=== PATIENT | female | born 1935 | race Caucasian/White ===

== ENCOUNTER 2017-06-04 08:20 | Inpatient (IN) | payer MEDICARE, OTHER ==
[2017-06-04] VITALS (14 sets, daily range): BP systolic 92–132; BP diastolic 50–76; PULSE 60–80; RESP 15–24; O2SAT 95–100
[~2017-06-04] VITALS: Ht 160 cm; Wt 54.0 kg
[2017-06-04] MEDS: Lactated Ringer's 1,000 ML IV SCH ×3 (05:00→11:24)
[~2017-06-04 08:20] MED LIST: ACET1TAB12 PO; ACET325T51 PO; ALEN70TA2 PO; ASPI325T32 PO; ATRV10T PO; CARV6.252 PO; CeFAZolin Inj 2 GM in IV Premix 1 EACH IV ONE; Dexamethasone 4 mg/mL Inj IVPUSH PRN; EPHEDrine Sulfate 50 mg/mL Inj IVPUSH PRN; FLUO10CA20 PO; FLUT16SP NS; HYDROmorphone 1 mg/mL Inj IVPUSH PRN; LEVO100T97 PO; LISI2.5T PO; Labetalol 5 mg/mL 4 mL Inj IV PRN; Lactated Ringer's 1,000 ML IV SCH; Lactated Ringer's 500 ML IV PRN; MetoCLOpramide 5 mg/mL 2 mL Inj IVPUSH PRN; Ondansetron 2 mg/mL 2 mL Inj IVPUSH PRN; Phenylephrine 10,000 mCg/mL Inj IVPUSH PRN; Vancomycin Inj 1,000 MG in IV Premix 1 EACH IV ONE; fentaNYL-PF 50 mCg/mL 2 mL Inj IVPUSH PRN; hydrALAZINE 20 mg/mL Inj IVPUSH PRN
[2017-06-04] MEDS ORDERED: CeFAZolin 2 Gm/50 mL D5W Duplex Bag IV ONE (08:41)
[2017-06-04] MEDS ORDERED: vit c PO (08:46)
[2017-06-04] MEDS ORDERED: MULT-1018 PO (08:46)
[2017-06-04] MEDS ORDERED: Tranexamic Acid 100 mg/mL 10 mL Inj ONE (11:01)
[2017-06-04] MEDS ORDERED: Bupivacaine Liposome 1.3% 20 mL Inj ONE (11:03)
[2017-06-04] MEDS ORDERED: 0.9% Sodium Chloride 10 mL Inj INFILTRATE ONE (11:32)
[2017-06-04] MEDS ORDERED: Bupivacaine-MPF 0.25%/EPI 30 mL Inj INFILTRATE ONE (11:32)
[2017-06-04] MEDS ORDERED: Bupivacaine Liposome 1.3% 20 mL Inj INFILTRATE ONE (11:32)
--- NOTE | 2017-06-04 12:16 | PCM.HPANE ---
Patient Data Date of Service: Jun 04, 2017 Surgeon Admitting Provider: Attending Provider:John Corral DO Primary Care Physician:Matilde Catherine DO Other Provider:Izabela Villegas Anesthesia Reason for Visit Left Vascular Necrosis Ht/WT & BMI Height (Feet): 5 Height (Inches): 2.00 Weight (Kilograms): 54.3 Body Mass Index 22.00 Allergies Coded Allergies: Penicillins (Verified Allergy, Mild, rash, 05/28/17) Sulfa (Sulfonamide Antibiotics) (Verified Allergy, Unknown, "felt awful", 05/28/17) levofloxacin (Verified Allergy, Unknown, "cannot recall reaction", 05/28/17 ) meperidine (Verified Allergy, Unknown, rash, 05/28/17) rosuvastatin (Verified Allergy, Unknown, muscle aches, 05/28/17) Past Anesthesia History Anesthesia History: Denies:: Abnormal Airway, Anesthesia Reactions, Difficult Intubation, Fam Anesthesia Reaction, Fam Malignant Hypertherm Diabetes History Hx Diabetes?: No MRSA MRSA: No Medications Blood Thinner: Aspirin Hypertension Medication: Yes Home Meds Incl Beta Rashmi: Yes Date Beta Rashmi Taken: Jun 04, 2017 Time Beta Rashmi Taken: 0700 Reported Medications [vit c] No Conflict Check Po Daily 06/04/17 Multivitamin (Multi Vitamin Daily)1 Each Tablet1 Each PO DAILY 30 Days Ref 0 06/04/17 Acetaminophen/Codeine 300-30mg (Tylenol/Codeine #3)1 Each Tablet1 Tablet PO Q6H PRN Pain Ref 0 05/28/17 Acetaminophen 325 Mg [id number] Mg PO Q4H PRN For Pain Ref 0 05/28/17 Levothyroxine (Synthroid)100 Mcg [id number] Mcg PO DAILY Ref 0 05/28/17 Lisinopril 2.5 Mg Tablet2.5 Mg PO DAILY 30 Days Ref 0 05/28/17 Alendronate Sodium (Fosamax)70 Mg Khcqyr43 Mg PO WEEKLY 30 Days Ref 0 05/28/17 Fluticasone Propionate (Fluticasone Propionate Nasal)16 Gm Irene.susp1-2 Irene NS BID #16 GM Ref 0 05/28/17 Carvedilol 6.25 Mg Tablet6.25 Mg PO BID Ref 0 05/28/17 Aspirin 325 Mg Tlunuc616 Mg PO DAILY #1 BOTTLE 05/28/17 Discontinued Reported Medications Fluoxetine 10 Mg Ycrrnob03 Mg PO DAILY Ref 0 05/28/17 Atorvastatin (Lipitor)10 Mg Tab10 Mg PO DAILY Ref 0 05/28/17 History History of ENT Problems?: Yes HEENT History: Positive for:: Cataracts (bilateral) Sinus Problem (perfume allergies, hx of sinus infections) Denies:: Abnormal Airway Difficult Intubation Dysphagia Glaucoma Hearing Problem TMJ Denture Type: None Teeth Condition: Within Normal Limits Hx of Heart Problems?: Yes Cardiovascular History: Positive for:: AICD Cardiac Surgery (ICD (for bradycardia)) Coronary Artery Disease Hypertension Denies:: Atrial Fibrillation Edema Heart Murmur Irregular Heartbeat Pacemaker Peripheral Vascular Rheumatic Fever Valvular Heart Disease (stress test 2017- ef 72%) Hx of Respiratory Problem?: No Respiratory History: Denies:: Asthma COPD Emphysema Oxygen Administration Pneumonia Pulmonary Embolism Tuberculosis Use of C-PAP Machine (did not tolerate CPAP) Use of Inhalers / NEBS Hx Neurologic Problems?: Yes Neurological History: Positive for:: CVA (2016- affected eyesight (double vision)- resolved ) Denies:: Headaches Multiple Sclerosis Parkinson's Disease Seizures TIA Hx of GI Problems?: No Hx of Problems?: No Genitourinary History: Denies:: Kidney Stones Urinary Tract Infection Female Hx: Denies:: Currently (hysterectomy) Problems with Breasts? Skin History: Denies:: History Skin Disorders? Pressure Ulcers Hx Musculoskeletal Problems?: Yes Musculoskeletal History: Positive for:: Degenerative Joint Musculoskeletal Trauma (left hip avascular necrosis current admission problem) Osteoarthritis (osteoporosis) Denies:: Back Injury Fibromyalgia Joint Replacement Systemic Lupus Hx of Psycho/Social Problems?: No Psycho Social History: Denies:: Anxiety Hx Depression Hx Surgeries?: Yes (hysterectomy, pacemaker, IM nail ) Hx Any Other Health Problems?: Yes Other History: Positive for:: Thyroid Disease Denies:: Cancer Hx Diabetes: No Hx Alcohol Use: YesAlcoholic Drinks Per Day: rare - once monthlyHx Substance Use: NoHave You Smoked inLast 12 mo: No Stop/Bang Treated for Sleep Apnea?: No Do You Have a CPAP Machine?: No S-Snoring: Do You Snore Loudly: No T-Tired: feel tired, fatigued: Yes O-Obsered: Observed not breath: No P-Blood Pressure: treated: Yes B- Body Mass Index > 35 kg/m2: No A- Age over 50: Yes N- Neck Large Circumference: No G- Gender Male: No RENA Total Score: 3 RENA Risk Assessment: Low Risk, <3 Yes Risk Assessment Category Category 1A: Patient has history of documented sleep apnea, and HAS NOT received any narcotic, sedative or anesthesia administration during this stay. Category 1B: Patient has history of documented sleep apnea, and HAS received any narcotic , sedative or anesthesia administration during this stay Category 2: Patient has SUSPECTED Obstructive Sleep Apnea, and HAS received any narcotic , sedative or anesthesia administration during this stay. Category 3: Patient has SUSPECTED Obstructive Sleep Apnea and HAS NOT received narcotic, sedative or anesthesia administration during this stay. Category 4: Outpatient in Procedural Areas with known sleep apnea or who screen positive for High Risk via the STOP/BANG questionnaire. Exam Exam Vital Signs Vital Signs Date Time Temp Pulse Resp B/P Pulse Ox O2 Delivery O2 Flow Rate FiO2 06/04/17 09:00 36.3 66 18 119/72 100 Room Air General Appearance: Alert, Oriented X3, Cooperative, No Acute Distress HEENT/AIRWAY: MP 2 Lungs: Clear to Auscultation, Normal Air Movement Heart: Exam Unremarkable, Regular Rate/Rhythm, No Murmurs/Rubs/Gallops Meds/Labs/Diagnostics Admission Meds Current Medications Lactated Ringer's 1,000 ml @ 120 mls/hr Q8H20M IV Last administered on 11:24; Start 06/04/17 at 05:00; Stop 06/04/17 at 13:19 Cefazolin Sodium/ Dextrose 2 gm/ Premix 50 ml @ 100 mls/hr PREOP ONCE IV Last administered on 06/04/17 11:33; Start 06/04/17 at 06:00; Stop 06/04/17 at 06:29; Status DC Vancomycin/0.9 % Sod Chloride/ Premix (Vancomycin Inj/ IV Premix) 200 ml @ 200 mls/hr PREOP ONCE IV Last administered on 06/04/17 09:10; Start 06/04/17 at 06:00; Stop 06/04/17 at 06:59; Status DC Plan Impression Patient chart reviewed, patient interviewed and anesthestic plan with risks, benefits, and alternatives discussed, and informed consent obtained. NPO per Anesth. Guidelines: Yes ASA Physical Status: ASA3 Severe Disease Anesthetic Plan: GA, SAB Bene/Risks/Altern/Consents: Yes HP Complete Prior to Induction: Yes Scott Lopez MD Jun 04, 2017 12:16
[2017-06-04] MEDS ORDERED: Lactated Ringer's 1,000 ML IV ONE (12:56)
[2017-06-04] MEDS ORDERED: HYDROmorphone 2 mg/mL Inj IVPUSH PRN (14:10)
[2017-06-04] MEDS ORDERED: Ondansetron 2 mg/mL 2 mL Inj IVPUSH PRN (14:10)
[2017-06-04] MEDS ORDERED: Acetaminophen IV 1,000 MG in IV Premix 1 EACH IV PRN (14:10)
[2017-06-04] MEDS ORDERED: diphenhydrAMINE 25 mg Capsule PO PRN (14:10)
[2017-06-04] MEDS ORDERED: Polyethylene Glycol (PEG) 17 Gm Powder PO PRN (14:10)
[2017-06-04] MEDS ORDERED: Sodium Biphos-Phos 133 mL Enema RECTAL PRN (14:10)
[2017-06-04] MEDS ORDERED: Magnesium Hydroxide 10 mL Oral Concentration PO PRN (14:10)
[2017-06-04 14:46] LABS: APPEARANCE,URINE HAZY (CLEAR,HAZY); COLOR,URINE STRAW (YELLOW); OCCULT BLOOD,URINE NEGATIVE (NEGATIVE); PH,URINE 7.5 (5.0-8.0); UROBILINOGEN,URINE NORMAL (NORMAL)
--- NOTE | 2017-06-04 14:59 | OP ---
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 PROCEDURE: Left hip conversion of previous hip nail to total hip arthroplasty. INDICATIONS: The patient is an 81-year-old female who fell and had an intertrochanteric hip fracture which was treated with a long cephalomedullary nail. She initially did well, however, then developed increasing pain and it was found that her lag screw had cut out through the femoral head causing damage to the acetabulum with posttraumatic arthritis. We discussed treatment options for this and I recommended a conversion to total hip replacement. We discussed the risks, benefits, and possible complications of surgery. All questions were answered. She would like to proceed. She had to have a cardiac workup and clearance prior to surgery which was undertaken and she was deemed ready for surgery today. We discussed the risks, benefits, and possible complications of surgery. All questions were answered. She wished to proceed. A surgical instrument maker was required for the successful completion of the procedure. PROCEDURE IN DETAIL: The patient was brought to the operating room. She was given a preoperative antibiotic 1 g TXA preoperatively and a surgical time-out was performed. The patient was placed into the lateral decubitus position. The left hip was sterilely prepped and draped. An incision was made over the distal locking screw and dissection was carefully carried down to the screw head. This was backed up by a couple of turns. Next an incision was made proximally. I unfortunately could not use her previous surgical incision as it was very anterior and not in line with the femoral shaft, and therefore I made a more appropriate incision in line with the femoral shaft and centered over the greater trochanter. Dissection was carefully carried through the subcutaneous tissue and electrocautery was used for hemostasis. A split was then made in the iliotibial band in line with the femur and the Charnley retractor was then placed. A split was then made in the gluteus medius between the junction of the anterior one-third and posterior two-thirds, and Hohmann retractors were placed on either side of the femoral neck. An anterior sleeve of tissue was then released off of the femur and a triangular portion of capsule was removed. The top of the nail was then encountered. The hip was then dislocated and the top of the nail was cleared of bone and soft tissue debris, and the set screw was loosened and the removal device was screwed into the top of the Affixus nail. Next, the lag screw was cleared of bone and soft tissue using an osteotome and rongeur, and the lag screw was removed. Next, the distal locking screw was removed through the previously made incision and the nail was then removed with a slap hammer. The wound was then irrigated and the femur was then prepared for total hip arthroplasty with a box osteotome and reamers. This was then broached up to a size 4, which had excellent fit and fill, and a calcar planer was used to smooth the top of the femur. Attention was then directed towards the acetabulum. The nail seemed to have eroded some of her posterior acetabulum, so I attempted to ream it slightly more anterior in order to preserve the posterior wall bone. Anterior and posterior acetabular retractors were placed and the pulvinar and labrum were removed. The acetabulum was then reamed sequentially up to a 51 for a 52 cup. The 52 cup was trialed, had excellent fixation and position and was a Thornton three hole 52 cup was impacted into position and secured with a single superior dome screw, which had excellent purchase, and then I did some trials and elected to use a 36 neutral polyethylene liner in order to get maximum stability and a four standard stem with a 36 1.5 head. I elected to use a ceramic to minimize wear as we did use the thinner optimized polyethylene liner. The components were placed with the liner and the femoral component being cemented into position. I used canal plug to plug the canal distally, washed the canal and then cemented the [place] size 4 stem into position. All excess cement was removed. After the cement had been allowed to polymerize, the 36 1.5 ceramic head was impacted. The hip was relocated and irrigated and then closed with #5 Ethibond to close the capsule. The remainder of the vastus lateralis and gluteus medius was repaired with #1 Ethibond. The iliotibial band was repaired with 0-Vicryl in a running fashion and the subcu was closed with 2-0 Vicryl. The skin was closed with a running subcuticular with Stratafix. The distal incision was closed with interrupted nylon suture. A mixture of Marcaine, Exparel, and saline was added as an adjunct local anesthetic. Sterile dressings were applied. Patient tolerated the procedure well. BLOOD LOSS: 150 cc. POSTOPERATIVE PROTOCOL: Have the patient weightbear to tolerance. Use a walker for ambulation. Will plan to use Lovenox for DVT prophylaxis.
--- NOTE | 2017-06-04 15:35 | DRSVH ---
PROCEDURE: X-RAY PELVIS W/LAT HIP (LT) ([id number]) INDICATIONS: POST-OP TECHNIQUE: AP pelvis and lateral view of the left hip acquired. COMPARISON: [facility], , XR FEMUR 2VW LT, 03/11/2017, 12:53. FINDINGS: Bones: Postoperative changes are evident related to a left hip total arthroplasty. The metallic acet abular and femoral components appear intact. Slight varus positioning is noted involving the femoral stem which is of uncertain clinical significance. There is no lucency surrounding the hardware. No periprostatic fractures are evident. Soft tissues: Overlying postoperative changes are noted. No suspicious soft tissue densities. No u nexpected radiopaque foreign bodies are evident. Postoperative changes within the overlying soft tis sues are noted. IMPRESSION: Expected postoperative changes of the left hip, status post total left hip arthroplasty. Dictated by: Bogdan Ryder M.D. on 06/04/2017 at 14:31 Approved by: Bogdan Ryder M.D. on 06/04/2017 at 14:33
[2017-06-04] MEDS ORDERED: Rocuronium 10 mg/mL 5 mL Inj ONE (15:43)
[2017-06-04] MEDS ORDERED: Dexamethasone 4 mg/mL Inj ONE (15:43)
[2017-06-04] MEDS ORDERED: Phenylephrine/NS 100 mCg/mL 10 mL Syringe IVPUSH ONE (15:43)
[2017-06-04] MEDS ORDERED: Ondansetron 2 mg/mL 2 mL Inj ONE (15:43)
[2017-06-04] MEDS ORDERED: Bupivacaine 0.5% 50 mL Inj ONE (15:43)
[2017-06-04] MEDS ORDERED: fentaNYL-PF 50 mCg/mL 2 mL Inj ONE (15:43)
[2017-06-04] MEDS ORDERED: Neostigmine 1 mg/mL 10 mL Inj ONE (15:43)
[2017-06-04] MEDS ORDERED: Propofol 10,000 mCg/mL 20 mL Inj ONE (15:43)
[2017-06-04] MEDS ORDERED: Glycopyrrolate 0.2 MG/ML 1mL Inj ONE (15:43)
[2017-06-04] MEDS ORDERED: Ketamine 10 mg/mL 20 mL Inj ONE (15:43)
--- NOTE | 2017-06-04 15:51 | NUR ---
Postop Pt to floor from PACU. Very sleepy but A&OX4. Denies any pain, Denies CP, SOB, Nausea. Left hip bulky dressing C/D/I. RA. IV Left Wrist in use. No complaints at this time. Plan to place on CPOx for the night. Care continues
[2017-06-04] MEDS: Sodium Chloride LOK Flush 10 mL Syringe IV SCH (16:30)
[2017-06-04] MEDS: 0.9% Sodium Chloride 1,000 ML IV SCH (17:03)
--- NOTE | 2017-06-04 19:57 | PCM.ANEP1 ---
Post Anesthesia PACU Phase 1 Assessment Date of Service: Jun 04, 2017 Vital Signs Vital Signs Date Time Temp Pulse Resp B/P Pulse Ox O2 Delivery O2 Flow Rate FiO2 06/04/17 16:40 65 20 95 Room Air 06/04/17 15:52 36.3 63 17 122/76 98 Room Air 06/04/17 15:40 Supplement Oxygen 06/04/17 15:35 62 18 120/50 99 Room Air 06/04/17 15:25 60 17 118/64 100 Room Air 06/04/17 15:15 60 15 117/64 99 Room Air 06/04/17 15:00 60 18 116/57 100 Room Air 06/04/17 14:55 60 20 118/56 100 Room Air 06/04/17 14:40 60 15 118/64 100 Room Air 06/04/17 14:35 61 114/70 98 Room Air 06/04/17 14:30 63 24 129/69 99 Simple Mask 8 06/04/17 14:25 35.9 63 17 124/73 100 Simple Mask 8 Anesthetic Administered: GA Level of Alertness: Sleepy, easy to arouse TSAI's with Equal Strength: Yes Pain: Yes (rn aware) Pain Scale Score: 3 Nausea or Vomiting: No CV Function & Hydration Stable: Yes Airway Device: Oxygen Delivery: Room Air Lungs: Clear to Auscultation, Normal Air Movement PACU Phase 2 Assessment Complications: No Follow up Care: No Patient Instructions Provided: N/A Scott Lopez MD Jun 04, 2017 19:57
[2017-06-04] MEDS: Senna-Docusate 8.6-50 mg Tablet PO SCH (20:24)
[2017-06-04] MEDS: CeFAZolin Inj 2 GM in IV Premix 1 EACH IV SCH (20:25)
[2017-06-04] MEDS: Fluticasone 0.05% 15 Spray/2 Gm 16 Gm Nasal Spray NASAL SCH (20:30)
[2017-06-04] MEDS: hydrOXYzine Pamoate 25 mg Capsule PO PRN (22:40)
[2017-06-05] VITALS (8 sets, daily range): BP systolic 89–109; BP diastolic 45–66; PULSE 74–96; RESP 14–18; O2SAT 95–98
[2017-06-05] MEDS: Sodium Chloride LOK Flush 10 mL Syringe IV SCH ×4 (00:30→23:54)
[2017-06-05] MEDS: 0.9% Sodium Chloride 1,000 ML IV SCH ×3 (00:35→21:16)
--- NOTE | 2017-06-05 02:07 | NUR ---
Pain/activity Pt reports pain 4/10 and rec'd PRN oxycodone with + effects. Bulky dressing in place to hip and is CDI. IV fluids infusing. Florez cath patent draining to gravity. +CMS, SCD's in place. Pt a/o and making needs known, using IS. care continues.
[2017-06-05] MEDS: CeFAZolin Inj 2 GM in IV Premix 1 EACH IV SCH (04:20)
[2017-06-05 05:52] LABS: BASOPHILS % (AUTO) 0 % (0-3); EOSINOPHILS % (AUTO) 0 % (0-5); MONOCYTES % (AUTO) 9.1 % (4-12); Mean Corpuscular Hemoglobin 31.1 pg (27.0-35.0); Mean Corpuscular Volume 94.2 fL (81-100); NEUTROPHILS % (AUTO) 85.5 % (40-74); Platelet Count 149 bil/L (150-400)
--- NOTE | 2017-06-05 08:12 | PCM.PNORTH ---
Subjective Date of Service: Jun 05, 2017 Visit Information: Reason for Visit Left Vascular Necrosis Surgery/Surgery Date left hip removal of IM adenike and conversion to total hip arthroplasty 06/04/2017 Post-Op Day # 1 Date of Admission: Jun 04, 2017 at 15:42 Hospital Day # Subjective Patient states she is feeling pretty good. She got up on her feet and locked in the room with therapy this morning. However she had an episode of hypotension. She states this happens to her often. Pain is under good control. The patient plans on going to fit the rehabilitation following her hospital stay. Objective Exam Objective Patient was seen in bed Vital Signs and I/O Vital Sign - Last Date Time Temp Pulse Resp B/P Pulse Ox O2 Delivery O2 Flow Rate FiO2 06/05/17 05:19 37.2 81 17 107/66 97 Room Air 06/04/17 14:30 8 Intake and Output 06/04/17 06/04/17 06/05/17 Cumulative From/Thru 15:00 23:00 07:00 05/28/17 12:32 - 06/05/17 05:38 Intake Total 1250 ml 120 ml 1934 ml 3304 ml Output Total 200 ml 200 ml 800 ml 1200 ml Balance 1050 ml -80 ml 1134 ml 2104 ml Intake Oral 120 ml 500 ml 620 ml IV Total 1250 ml 1434 ml 2684 ml Output Urine Total 200 ml 800 ml 1000 ml Estimated Blood Loss 200 ml 200 ml # Bowel Movements 0 0 Lab & Micro Results Laboratory Tests Test 06/04/17 14:27 06/05/17 04:40 Urine Color Straw (YELLOW) Urine Appearance Hazy (CLEAR,HAZY) Urine pH 7.5 (5.0-8.0) Urine Specific [place] 1.015 (1.003-1.035) Urine Protein Negativemg/dL (NEG,TRACE) Urine Glucose (UA) Negativemg/dL (NEGATIVE) Urine Ketones 15mg/dL (NEGATIVE) Urine Occult Blood Negative (NEGATIVE) Urine Nitrite Negative (NEGATIVE) Urine Bilirubin Negative (NEGATIVE) Urine Urobilinogen Normalmg/dL (NORMAL) Urine Leukocyte Esterase Negative (NEGATIVE) Urine RBC 3-10/hpf (0-2) Urine WBC 0-5/hpf (0-5) Urine Epithelial Cells Occasional/hpf (NONE-MOD) Urine Crystals None seen (NONE SEEN) Urine Bacteria None/hpf (NONE-FEW) Urine Hyaline Casts None/lpf (NONE) Urine Granular Casts None seen (NONE SEEN) Urine Waxy Casts None seen (NONE SEEN) Urine Red Blood Cell Casts None seen (NONE SEEN) Urine White Blood Cell Casts None seen (NONE SEEN) Urine Mucus Present (None Seen) Urine Trichomonas None seen (NONE SEEN) Urine Yeast None (NONE SEEN) Urinalysis Comment None Urine Culture Reflexed Not indicated White Blood Count 12.2th/mm3 (3.8-10.1) Red Blood Count 3.25mil/mm3 (3.90-5.20) Hemoglobin 10.1g/dL (12.0-15.6) Hematocrit 30.6% (35.0-46.0) Mean Corpuscular Volume 94.2fL (81-100) Mean Corpuscular Hemoglobin 31.1pg (27.0-35.0) Mean Corpuscular Hemoglobin Concent 33.0% (32.0-37.0) Red Cell Distribution Width 12.6% (12.3-15.4) Platelet Count 149bil/L (150-400) Neutrophils (%) (Auto) 85.5% (40-74) Lymphocytes (%) (Auto) 5.2% (14-46) Monocytes (%) (Auto) 9.1% (4-12) Eosinophils (%) (Auto) 0% (0-5) Basophils (%) (Auto) 0% (0-3) Sodium Level 137mEq/L (134-144) Potassium Level 4.4mEq/L (3.5-5.2) Chloride Level 103mEq/L (97-108) Carbon Dioxide Level 22mmol/L (18-29) Blood Urea Nitrogen 12mg/dL (8-27) Creatinine 0.45mg/dL (0.57-1.00) Estimat Glomerular Filtration Rate 191mL/min (>59) Glucose Level 126mg/dL (60-99) Calcium Level 8.8mg/dL (8.5-10.1) Microbiology 06/04/17 Gram Stain - Final, Resulted 06/04/17 Culture & Sensitivity, Resulted Pending 06/04/17 Anaerobic Culture, Resulted Pending Result Diagram: 06/05/170 06/05/17439 General Appearance: Alert, Oriented X3, Cooperative, No Acute Distress Extremities: Distal Pulses Palpable, No Compartment Syndrom Noted, Thigh & Calf Soft/Nontender Postop Sensory Motor: Distal Motor Intact, Distal Sensation Intact, NVI Distally SURGICAL WOUND : Wound Location/Description Dressing is clean dry and intact Incision General Appearance: No Direct Observation Activity: Activity per PT Catheters: None Assessment & Plan Impression POD#1 status post left hip removal of adenike and conversion to total hip arthroplasty Problems: Plan Weightbearing: Weightbearing as tolerated with front wheeled walker DVT prophylaxis: Lovenox 40 mg subcutaneous 3 weeks followed by aspirin 325 mg twice a day 3 weeks Physical therapy for transfers, progressive ambulation, therapeutic exercise Wound care: PA will change dressing on postop day 2 Discharge plan: [facility]charge to prison facility on Saturday. Patient requires prison as well as daily therapy to continue her rehabilitation. This surgery was the sequelae from complications of a hip fracture. Follow-up plan: In 2 weeks at [facility] with PA for wound check and at [address] Corral with x-rays Pain Management: Tylenol IV, oxycodone, Vistaril VTE Prophylaxis: Sub-Q Enoxaparin, SCDs Resuscitation Status: CPR: Attempt Resuscitation Azul Tripp PA-C Jun 05, 2017 08:12
[2017-06-05] MEDS: Senna-Docusate 8.6-50 mg Tablet PO SCH ×2 (08:26→21:16)
[2017-06-05] MEDS: Fluticasone 0.05% 15 Spray/2 Gm 16 Gm Nasal Spray NASAL SCH ×2 (08:27→20:30)
--- NOTE | 2017-06-05 10:48 | NUR ---
Evaluation completed. Please go to "Notes" then click on "Assessments and Notes" (bottom left corner of screen). Then select appropriate discipline tab on top of screen.
[2017-06-05] MEDS: hydrOXYzine Pamoate 25 mg Capsule PO PRN (12:57)
--- NOTE | 2017-06-05 13:41 | NUR ---
Social Work- Initial Assessment/ Multidisciplinary Rounds Data: See Initial Assessment and Advance Directive Intervention for additional information. Pt discussed in rounds. Pt is POD 1. Pt is not ready for discharge at this time. Pt will need SNF at discharge, LAUREN order received. Pt is a 81 year old admitted 06/04/17 for left vascular necrosis per H&P. Pt's insurance is [employer] and [email or web address]. Pt's PCP is Matilde Catherine MD. Pt's readmit risk score is 2. SW met with pt, pt's sister Lilly, and pt's daughter Helen at bedside regarding discharge plan, SW role explained. Pt alert and oriented x3. Pt's designated personal financial advisor is daughter Helen [phone]. Pt's capacity for self-care assessed. Pt resides in [place] in a home with spouse. Pt is independent with ADLs and self-care. Pt uses no DME at baseline but has a cane and walker available for use. Pt has not driven in the last year. Pt has no history with services. Pt has history at [facility]. Pt has DPOA on file. LAUREN discussed SNF recommendation with pt and family and all are agreeable. SNF CHOICE LIST PROVIDED. Pt's only choice is [facility]. SW explained that transportation is not provided and is approximately [address] Pt and family are agreeable and pt's daughter is the personal financial advisor for transportation payment. Paperwork in chart and PASRR in folder. LAUREN provided Discharge planning Checklist and requested that pt contact [facility] if needs identified. LAUREN provided phone number and plan on whiteboard. [facility] [employer] CSR contacted to make SNF referral to [facility]. Pt and family agreeable to plan. SW will continue to follow. Assessment: Pt for whom SNF is medically indicated. Plan: Referral to [facility]. Paperwork in chart and PASRR in folder. LAUREN will continue to follow. MARTIN Scott Addendum: 07/26/17 at 1346 by MINOR HAGEN SS Amended: Links added.
--- NOTE | 2017-06-05 13:46 | NUR ---
SNF CHOICE LIST PROVIDED. Rand Patiño MSW
--- NOTE | 2017-06-05 14:48 | NUR ---
Faxed referral to [facility] per MARTIN and order Addendum: 06/05/17 at 1618 by TAINA DONALDSON CM [facility] has accepted patient for transfer when ready with Chen to follow
--- NOTE | 2017-06-05 17:36 | NUR ---
Fever at 1730 hours patient spiked fever 38.8 orally. 650mg PO tylenol given. Latisha Ty PA called. New instructions: encourage DB&C, IS, encouraged PO fluid intake, monitor temperature. If fever worse to call her back this evening. Latisha Ty was also notified of decreased urine output today and orthostatic BP when working with PT. continue with current recommendations.
[2017-06-05] MEDS: Ketorolac 15 mg/mL Inj IVPUSH PRN (22:17)
--- NOTE | 2017-06-05 23:55 | NUR ---
Temp/BP Upon further reassessment this evening, patients oral temp has improved; 36.7 and 36.9. Patients BP remains low at 2100 93/56 and 2341 was 93/51 lying. Evening BP medication held. Currently has NS @ 100 infusing. Patient denies lightheadedness, dizziness, or diaphoresis. Will continue to closely monitor. Addendum: 06/06/17 at 0005 by RAND HOOPER RN scallop cutter machine PA notified of low BP. No new orders at this time. Addendum: 06/06/17 at 0043 by RAND HOOPER RN Ortho PA aware, and states to continue to hold BP medications, as well as avoid narcotics if possible, and to notify PA is BP continues to worsen. This evening patient has received torodal for pain, and seems to have provided relief. Will continue to monitor and continue Q1 hour checks. Addendum: 06/06/17 at 0626 by RAND HOOPER RN Temp increased again this morning to 99.5 F. Another 2 tabs Tylenol PO given. Will continue to monitor.
[2017-06-06] VITALS (8 sets, daily range): BP systolic 88–122; BP diastolic 52–74; PULSE 77–93; RESP 16–18; O2SAT 94–97
--- NOTE | 2017-06-06 02:11 | NUR ---
Voiding At beginning of shift patient was only able to void 25-50cc at a time via bedpan. This evening patient was finally able to void 300cc at approx 0150. Bladder scan preformed and showed 729. Discussed with charge nurse, and states that since patient is having sensation to void that an in/out is not necessary at this time, but to continue to encourage patient to void frequently. Due to patients low BP, bed gómez has been used due to safety concern of getting patient out of bed at this time. Will continue to monitor. Addendum: 06/06/17 at 0620 by RAND HOOPER RN At 0530 patient encouraged to void again. Was able to void 100cc. Bladder scan preformed again and PVR showed 704. In/Out cath preformed in hopes to restart the bladder; 750cc out. Care continues.
[2017-06-06 05:28] LABS: BASOPHILS % (AUTO) 0.2 % (0-3); EOSINOPHILS % (AUTO) 0.5 % (0-5); MONOCYTES % (AUTO) 11.4 % (4-12); Mean Corpuscular Hemoglobin 31.1 pg (27.0-35.0); Mean Corpuscular Volume 94.3 fL (81-100); Platelet Count 126 bil/L (150-400)
[2017-06-06] MEDS: 0.9% Sodium Chloride 1,000 ML IV SCH (06:16)
[2017-06-06] MEDS: Senna-Docusate 8.6-50 mg Tablet PO SCH ×2 (07:59→21:13)
[2017-06-06] MEDS: Sodium Chloride LOK Flush 10 mL Syringe IV SCH ×2 (08:00→16:43)
[2017-06-06] MEDS: Fluticasone 0.05% 15 Spray/2 Gm 16 Gm Nasal Spray NASAL SCH ×2 (08:00→20:30)
--- NOTE | 2017-06-06 09:38 | PCM.PNORTH ---
Subjective Date of Service: Jun 06, 2017 Visit Information: Reason for Visit Left Vascular Necrosis Surgery/Surgery Date Post-Op Day # Date of Admission: Jun 04, 2017 at 15:42 Hospital Day # Subjective POD#2 status post left hip removal of adenkie and conversion to total hip arthroplasty. Patient states her pain is much better today than it was yesterday. Perhaps it with her progress. Has not been able to ambulate sufficiently to take care of herself. Has been eating and using the restroom fine today. She did have a little blood pressure that was low and was a little dizzy yesterday with therapy, but feeling better today. Postop General: No Complaints, No Shortness of Breath, No Chest Pain Objective Exam Objective Patient is alert and oriented 3. Answering questions appropriately. Patient is sitting up in the bed and not in acute distress today. Dressing is clean dry and intact. Upon dressing change, incision is intact, no erythema, no discharge. Dry. Calf is soft and nontender. Sensation and pulses intact, patient able to wiggle toes. Vital Signs and I/O Vital Sign - Last Date Time Temp Pulse Resp B/P Pulse Ox O2 Delivery O2 Flow Rate FiO2 06/06/17 07:53 37.1 86 16 103/63 95 Room Air 06/04/17 14:30 8 Intake and Output 06/05/17 06/05/17 06/06/17 Cumulative From/Thru 15:00 23:00 07:00 05/28/17 12:32 - 06/06/17 06:18 Intake Total 1420 ml 1352 ml 6076 ml Output Total 225 ml 1350 ml 2775 ml Balance 1195 ml 2 ml 3301 ml Intake Oral 220 ml 200 ml 1040 ml IV Total 1200 ml 1152 ml 5036 ml Output Urine Total 225 ml 1350 ml 2575 ml Estimated Blood Loss 200 ml # Bowel Movements 0 0 0 Lab & Micro Results Laboratory Tests Test 06/06/17 04:45 White Blood Count 9.3th/mm3 (3.8-10.1) Red Blood Count 2.96mil/mm3 (3.90-5.20) Hemoglobin 9.2g/dL (12.0-15.6) Hematocrit 27.9% (35.0-46.0) Mean Corpuscular Volume 94.3fL (81-100) Mean Corpuscular Hemoglobin 31.1pg (27.0-35.0) Mean Corpuscular Hemoglobin Concent 33.0% (32.0-37.0) Red Cell Distribution Width 12.9% (12.3-15.4) Platelet Count 126bil/L (150-400) Neutrophils (%) (Auto) 80.0% (40-74) Lymphocytes (%) (Auto) 7.6% (14-46) Monocytes (%) (Auto) 11.4% (4-12) Eosinophils (%) (Auto) 0.5% (0-5) Basophils (%) (Auto) 0.2% (0-3) Sodium Level 138mEq/L (134-144) Potassium Level 3.6mEq/L (3.5-5.2) Chloride Level 106mEq/L (97-108) Carbon Dioxide Level 22mmol/L (18-29) Blood Urea Nitrogen 12mg/dL (8-27) Creatinine 0.42mg/dL (0.57-1.00) Estimat Glomerular Filtration Rate 206mL/min (>59) Glucose Level 100mg/dL (60-99) Calcium Level 8.4mg/dL (8.5-10.1) Microbiology 06/04/17 Gram Stain - Final, Resulted 06/04/17 Culture & Sensitivity - Preliminary, Resulted 06/04/17 Anaerobic Culture - Preliminary, Resulted Result Diagram: 06/06/17 0445 06/06/175 SURGICAL WOUND : Incision General Appearance: No Direct Observation Activity: Activity per PT Catheters: None Assessment & Plan Impression POD#2 status post left hip removal of adenike and conversion to total hip arthroplasty. Patient's pain and dizziness significantly better today. Problems: Plan Weightbearing: Weightbearing as tolerated with front wheeled walker DVT prophylaxis: Lovenox 40 mg subcutaneous 3 weeks followed by aspirin 325 mg twice a day 3 weeks Physical therapy for transfers, progressive ambulation, therapeutic exercise Changed dressing today. Discharge plan[facility] as well as daily therapy to continue her rehabilitation. This surgery was the sequelae from complications of a hip fracture. Follow-up plan: In 2 weeks at [facility] with PA for wound check and at [address] Corral with x-rays VTE Prophylaxis: Sub-Q Enoxaparin, SCDs Resuscitation Status: CPR: Attempt Resuscitation Carlos Manuel Amaro PA-C Jun 06, 2017 09:38
[2017-06-06] MEDS: Ketorolac 15 mg/mL Inj IVPUSH PRN (09:59)
[2017-06-06] MEDS: HYDROcodone-APAP 5-325 mg Tablet PO PRN (12:57)
--- NOTE | 2017-06-06 13:34 | NUR ---
Social Work- Readiness for Discharge/Multidisciplinary Rounds Data: EMR reviewed. Pt is on day 2 of hospitalization. Pt discussed in rounds. Pt is POD 2. Pt is anticipated to discharge tomorrow to [facility]. Pt will require a Doc to Doc with MD Siddiqui [phone]. Hospitalist aware. Paperwork and PASRR in patient's chart, PASRR has been faxed to [facility]. All updated and agreeable to plan. SW will continue to follow. Assessment: Pt for whom SNF is medically necessary Plan: Pt to discharge tomorrow to [facility], MD Siddiqui to follow. Paperwork and PASRR in patient's chart, PASRR has been faxed. All updated and agreeable to plan. SW will continue to follow. MARTIN Scott
--- NOTE | 2017-06-06 13:55 | NUR ---
Urinary Retention patient unable to void this am, despite several attempt up to BSC. Bladder scan done at 1310hrs, 609ml. Latisha GRADY notified, ordered to place catheter. Ms Carrizales with reassess patient later. patient stated that she felt better aftet bladder drained. continue to monitor.
--- NOTE | 2017-06-06 17:24 | PCM.CHPMED ---
Subjective Date of Service: Jun 06, 2017 Primary Physician: Admitting Physician: John Corral DO Primary Care Physician: Matilde Catherine DO Attending Physician: John Corral DO Chief Complaint: Chief Complaint: Avascular necrosis of the left hip History of Present Illness: 81-year-old female with a history of osteoporosis, CVA, hypertension, hypothyroidism, reported CHF and recent left hip fracture on 03/25/16 and was initially repaired with an IM nail at [facility]. Initially she did very well but then developed increased pain and on assessment it is noted the nail had displaced through the femoral head causing acetabular damage. Patient is in the hospital following a left hip hemiarthroplasty. Prior to this surgery she was given a full cardiac workup and clearance. Her course in the hospital has been relatively unremarkable except for new urine retention that began last night after removal of the Florez, and a blood pressure reading today of SBP equal to 88. On interview the patient denies any symptoms including dizziness, increased fatigue, neurological sequelae, or lightheadedness. She also denies chest pain or shortness of breath. Patient had to be straight cath this morning and around 13:00 a Florez was reinserted. The patient is able to only void around 25 mL. Medicine was consultative to advise on hypotension, medical management, and urinary retention. Patient denies any history of low blood pressures states hers maintains 120/70. No prior history of urinary retention. Review of Systems: Complete review of systems performed; pertinent positives and negatives per history of present illness, all other systems reviewed and are negative PMH Past Medical History Hypothyroidism Sleep apnea Venostasis disease Osteoporosis Osteoarthritis Hypertension Hyperlipidemia History of CVA Displaced intertrochanteric fracture of left femur Depression CHF Cardiac pacemaker Surgical History Cardiac pacemaker Cephalomedullary nail Allergies: Coded Allergies: Penicillins (Verified Allergy, Mild, rash, 05/28/17) Sulfa (Sulfonamide Antibiotics) (Verified Allergy, Unknown, "felt awful", 05/28/17) levofloxacin (Verified Allergy, Unknown, "cannot recall reaction", 05/28/17 ) meperidine (Verified Allergy, Unknown, rash, 05/28/17) rosuvastatin (Verified Allergy, Unknown, muscle aches, 05/28/17) Family History Family History Father of an ND at 62 Mother of DVT/PE Social History Hx Alcohol Use: YesAlcoholic Drinks Per Day: rare - once monthlyHx Substance Use: No Exam Vital Signs Vital Sign - Last Date Time Temp Pulse Resp B/P Pulse Ox O2 Delivery O2 Flow Rate FiO2 06/06/17 14:22 Room Air 06/06/17 13:28 90 06/06/17 12:15 88/52 06/06/17 12:12 36.7 95 06/06/17 07:53 16 06/04/17 14:30 8 Intake and Output 06/05/17 06/05/17 06/06/17 Cumulative From/Thru 15:00 23:00 07:00 05/28/17 12:32 - 06/06/17 06:18 Intake Total 1420 ml 1352 ml 6076 ml Output Total 225 ml 1350 ml 2775 ml Balance 1195 ml 2 ml 3301 ml Intake Oral 220 ml 200 ml 1040 ml IV Total 1200 ml 1152 ml 5036 ml Output Urine Total 225 ml 1350 ml 2575 ml Estimated Blood Loss 200 ml # Bowel Movements 0 0 0 General: Alert, Oriented X3, Cooperative Head: Normal Eyes: PERRLA, Scleral Anicteric Mouth: Mucous Membr Moist/Pender Chest & Lungs: Chest Wall Normal, Clear to auscultation & percussion Cardiovascular: Regular Rate/Rhythm Abdomen: Non-tender, Non-distended Musculoskeletal: Other (healing scar of the left hip) Skin: Other (no rashes) Neurological: Grossly Neurologically Intact Lab and Diagnostics Result Diagram: 06/06/175 06/06/17 0445 X-Rays, CTs and MRIs Femur x-ray 1. Further healing of left intratrochanteric hip fracture and stable postsurgical changes. Dictated by: Fazal SERVIN Interpreted: Simona Lubin MD on 03/11/2017 at 13:57 Hip/pelvis x-ray 1. Further healing of left intratrochanteric hip fracture and stable postsurgical changes Dictated by: Fazal SERVIN Interpreted: Simona Lubin MD on 03/11/2017 at 13:59 Assessment & Plan Assessment 81-year-old female with numerous cardiac risk factors who underwent left hip hemiarthroplasty after failure of a IM nail for intertrochanteric fracture who has ongoing urinary retention and hypotension. Medicine was consult to to manage these issues. Hypotension; not present on admission; ongoing -Likely not due to volume depletion she is 54 kg receiving 100 mL an hour fluid -Bloodwork from this morning does not provide an immediate answer -Continue fluids -Recheck blood pressure manually -Small drop in hemoglobin is likely due to recent surgery -Hold narcotic medications including Dilaudid and oxycodone as able -Stop lisinopril for the time being -We will order iron studies to assess anemia Urinary retention; compresses on medicine; ongoing -Catheter removed yesterday evening and patient was straight cathed overnight due to retention of 6-700 mL -PVR around noon revealed additional retention and patient was unable to void by herself -Recommend stopping Florez placed at 1300 -Movement as tolerated by patient -If she feels she has to go she consented on the commode extended period of time as long as it is tolerated -Straight cath with pre-void exam -Post void residuals after patient's attempts Thank you for allowing us participate in the care of this patient. Should she have any questions please feel free to contact red team Problems: VTE Prophylaxis: Sub-Q Enoxaparin, SCDs VTE Mechanical Devices: Intermittant Pneumatic CD Resuscitation Status: CPR: Attempt Resuscitation Attending Statement The patient was seen and examined together with Dr. Ayon on 06/06/17 and I agree with the history, exam and plan as outlined in the note above. John Ayon DO Jun 06, 2017 17:24 Arnold Cavanaugh Jun 06, 2017 18:21
--- NOTE | 2017-06-06 18:42 | NUR ---
D/C Cath order received to discontinue patient's catheter. Pt notified ad gave verbal consent. F/C d/c'd per ordered and res denies pain or any discomfort. Per MD to have pt move as much as tolerated; straight cath if retention continues overnight. Pt aware and will continue to monitor.
--- NOTE | 2017-06-06 18:44 | NUR ---
DC'd per Dr Ayon's orders cath DC'd at approx 1800hrs. with additional instructions for increased patient's mobility, pre and post void residuals and in/out straight cath as needed for urinary retention. instructions reviewed with patient. patient also feeling constipated, suppository given with a small BM post suppository. pain level has been well controlled today with PO pain medications. continue to monitor and encourage increased activity.
[2017-06-06] MEDS ORDERED: HYDROmorphone 0.5 mg/0.5 mL iSecure Syringe IVPUSH PRN (20:55)
[2017-06-06] MEDS ORDERED: HYDROmorphone 1 mg/mL Inj IVPUSH PRN (20:55)
[2017-06-07 00:05] VITALS: BP 117/65; PULSE 92; RESP 18; O2SAT 96
[2017-06-07] MEDS: Sodium Chloride LOK Flush 10 mL Syringe IV SCH ×3 (00:30→08:10)
[2017-06-07] MEDS: HYDROcodone-APAP 5-325 mg Tablet PO PRN ×2 (01:18→08:10)
--- NOTE | 2017-06-07 05:34 | NUR ---
Voiding At beginning of shift patient voided 75ml as well as had two large formed bowel movements (urine + stool mix). At approx 2100 bladder scanner estimated 175ml PVR left in bladder. Patient tolerated up to BSC via 1 person assist and FWW. At 0420 bladder scanned again and estimated 615ml. Assisted patient up to BSC and was able to void 150ml of brian odorous urine. PVR done with bladder scanner again and estimated 568ml. In/Out cath preformed, and obtained 375ml out. Fluids encouraged as well as increasing ambulation, and encouraging toileting either on the BSC or in the BRM. Will continue to monitor and continue Q1 hour checks.
[2017-06-07 05:56] VITALS: BP 111/60; PULSE 77; RESP 18; O2SAT 97
--- NOTE | 2017-06-07 07:13 | PCM.PNORTH ---
Subjective Date of Service: Jun 07, 2017 Visit Information: Reason for Visit Left Vascular Necrosis Surgery/Surgery Date Post-Op Day # 3 Date of Admission: Jun 04, 2017 at 15:42 Hospital Day # Subjective Patient states she is feeling well this morning. Nursing states she is still retaining urine and had to be straight cathed again this morning around 4am. Postop General: No Complaints, No Shortness of Breath, No Chest Pain Pain Management: PO Objective Exam Objective Patient laying in bed, sleeping comfortable prior to waking her for exam Vital Signs and I/O Bad tableLab & Micro Results Microbiology 06/04/17 Gram Stain - Final, Resulted 06/04/17 Culture & Sensitivity - Preliminary, Resulted 06/04/17 Anaerobic Culture - Preliminary, Resulted Result Diagram: 06/06/17 0445 06/06/17 0445 General Appearance: Alert, Oriented X3, Cooperative, No Acute Distress Extremities: Distal Pulses Palpable, No Compartment Syndrom Noted Postop Sensory Motor: Distal Motor Intact, Movement in Toes, Distal Sensation Intact, NVI Distally SURGICAL WOUND : Incision General Appearance: No Direct Observation Activity: Activity per PT Catheters: None Assessment & Plan Impression POD#3 status post left hip removal of adenike and conversion to total hip arthroplasty. Patient's urinary retention still present. Dizziness and hypotension seem to have resolved. Problems: Plan Patient is still having urinary retention however I do not believe this is a contraindicated for discharge as she is going to a [facility] facility. Will defer to hospitalist service on whether discharge should be held on account of this. Weightbearing: Weightbearing as tolerated with front wheeled walker DVT prophylaxis: Lovenox 40 mg subcutaneous 3 weeks followed by aspirin 325 mg twice a day 3 weeks Physical therapy for transfers, progressive ambulation, therapeutic exercise Patient should receive thigh high compression stockings prior to discharge. They should be applied bilaterally. Discharge plan: Discharge to [facility] facility today as long as she is medically cleared. Patient requires [facility] as well as daily therapy to continue her rehabilitation. This surgery was the sequelae from complications of a hip fracture. Follow-up plan: In 2 weeks at [facility] with MIGUEL A for wound check and at [address] Corral with x-rays VTE Prophylaxis: Sub-Q Enoxaparin, SCDs Resuscitation Status: CPR: Attempt Resuscitation Latisha Tony PA-C Jun 07, 2017 07:13
--- NOTE | 2017-06-07 07:18 | PCM.DIORTH ---
Ortho Discharge Instruction Date of Service: Jun 07, 2017 Dates of Hospitalization Date of Hospital Admission Jun 04, 2017 at 15:42 Providers Admitting Physician: John Corral DO Primary Care Physician: Matilde Catherine DO Attending Physician: John Corral DO Activity Discharge Activity-General: Be up and about, Ice incision 3-5 time/day for 20min Left Lower Extremity: Weight Bearing as tolerated Dressing and Incisional Care Discharge Dressing Care: Allow Steri Stripes to fall off, Change soiled dressing Discharge Hygiene: May shower (if incision is dry), DO NOT soak incision under water, NO bathtub, hot tub or whirlpool Additional Instructions Discharge Instructions Weightbearing: Weightbearing as tolerated with front wheeled walker DVT prophylaxis: Lovenox 40 mg subcutaneous 3 weeks followed by aspirin 325 mg twice a day 3 weeks Physical therapy for transfers, progressive ambulation, therapeutic exercise Patient should receive thigh high compression stockings prior to discharge. They should be applied bilaterally and she should wear them during the day but may roll them down or remove at night. Follow-up plan: In 2 weeks at [facility] with MIGUEL A for wound check and at [address] Corral with x-rays Latisha Toyn PA-C Jun 07, 2017 07:18
[2017-06-07] MEDS ORDERED: HYDR-4003 PO (07:19)
[2017-06-07] MEDS ORDERED: ENOX40DI8 SUBQ (07:19)
[2017-06-07] MEDS: Fluticasone 0.05% 15 Spray/2 Gm 16 Gm Nasal Spray NASAL SCH ×2 (08:10→08:11)
[2017-06-07] MEDS: Senna-Docusate 8.6-50 mg Tablet PO SCH (08:10)
--- NOTE | 2017-06-07 08:44 | NUR ---
Social Work: Readiness for Discharge D: EMR reviewed. Pt is on day 3 of hospitalization. Per Sales Development Consultant, pt to discharge today to [facility]. [facility] will provide transport between 1300 and 1330 today. LAUREN will update RN and MD in multidisciplinary rounds. Transfer packet completed. Pt will require a Doc to Doc with MD Siddiqui [phone]. Paperwork and PASRR in patient's chart, PASRR has been faxed to [facility]. All updated and agreeable to plan. SW will continue to follow. A: Pt for whom SNF is medically necessary P: Pt to discharge today between 1300 and 1330 to [facility], MD Siddiqui to follow. SW to update MD and RN in rounds. Paperwork and PASRR in patient's chart, PASRR has been faxed. All updated and agreeable to plan. SW will continue to follow. MARTIN Kaur Addendum: 06/07/17 at 1007 by JOSE WELCH Transfer packet complete. RN/MD updated on transport time in multidisciplinary rounds. All agreeable to plan. MARTIN Kaur
[2017-06-07 08:49] VITALS: BP 107/66; PULSE 81; RESP 18; O2SAT 96
--- NOTE | 2017-06-07 09:32 | NUR ---
DC planned for today to SNF. OT deferred until pt. at facility. Unable to see this morning due to physical therapy session. Dharmesh Cardenas OT/L
--- NOTE | 2017-06-07 10:17 | NUR ---
Fdc Transfer: Faxed orders to [facility] and placed copy in chart. Spoke with Pepper and she is having Replaced [facility] customer service driver come and pick patient up via wheelchair van between 1300&1330. Updated ENVIRONMENTAL HEALTH NURSE and RN
--- NOTE | 2017-06-07 12:34 | NUR ---
Social Work: Discharge D: EMR reviewed. Pt is on day 3 of hospitalization. Pt confirmed to transport to [facility] via [facility] transportation between 1300 and 1330. PASRR/discharge orders faxed to [facility]. Transfer packet completed. All updated and agreeable to plan. SW will continue to follow. A: Pt for whom SNF is medically necessary P: Pt to discharge today between 1300 and 1330 to [facility], MD Siddiqui to follow. SW to update MD and RN in rounds. Paperwork and PASRR in patient's chart, PASRR/discharge orders faxed by Biology Teacher. Transfer packet complete. RN/MD updated on transport time in multidisciplinary rounds. All updated and agreeable to plan. SW will continue to follow. MARTIN Kaur
--- NOTE | 2017-06-07 14:04 | NUR ---
Discharge Patient discharged via wheelchair and transport from [facility]. IV DC'd intact. Rita hose on the right leg with other rita sent with patient. Requested to go in hospital gown and jacket. All personal effects went with patient. [facility].
--- NOTE | 2017-06-10 11:45 | PCM.DC.ORT ---
Discharge Summary Date of Service: Jun 10, 2017 Date of Hospital Admission: Jun 04, 2017 at 15:42 Date of Surgery: Jun 04, 2017 Date of Discharge: Jun 07, 2017 Reason for Hospitalization: Left hip avascular necrosis Procedures Performed: Left hip conversion of previous hip nail to total hip arthroplasty. Hospital Course: Patient was admitted on 06/10/17 and underwent the above procedure. Patient was given clindamycin and vancomycin. She was given a catheter prior to the procedure. She tolerated the procedure well and was transferred to the floor in a stable condition. The was removed POD#1 however she needed to be straight cathed twice POD#2 and a was reinserted. Patient has a history of urinary retention. She was discharged to a SNF on POD#3 in stable condition. Discharge Instructions: Weightbearing: Weightbearing as tolerated with front wheeled walker DVT prophylaxis: Lovenox 40 mg subcutaneous 3 weeks followed by aspirin 325 mg twice a day 3 weeks Physical therapy for transfers, progressive ambulation, therapeutic exercise Patient should receive thigh high compression stockings prior to discharge. They should be applied bilaterally and she should wear them during the day but may roll them down or remove at night. Follow-up plan: In 2 weeks at [facility] with PA for wound check and at [address] Corral with x-rays ([vit c]) PO DAILY Alendronate Sodium (Fosamax) 70 Mg Tablet 70 MG PO WEEKLY Carvedilol (Carvedilol) 6.25 Mg Tablet 6.25 MG PO BID Enoxaparin Sodium (Enoxaparin Sodium) 40 Mg/0.4 Ml Syringe 40 MG SUBQ Q24 Fluticasone Propionate (Fluticasone Propionate Nasal) 16 Gm [place].susp 1-2 SPRAY NS BID Hydrocodone-Acetaminophen 5-325 mg (Hydrocodone-Acetaminophen 5-325 mg) 1 Each Tablet 1-2 TABLET PO Q4H PRN PRN For Moderate Pain Levothyroxine (Synthroid) 100 Mcg Tablet 100 MCG PO DAILY Lisinopril (Lisinopril) 2.5 Mg Tablet 2.5 MG PO DAILY Multivitamin (Multi Vitamin Daily) 1 Each Tablet 1 EACH PO DAILY Latisha Tony PA-C Jun 10, 2017 11:45
== END 2017-06-07 13:35 | DRG 470 ==
LOC: SAS 08:20 → OSC 15:42
PROVIDERS: ADMIT Orthopaedic Surgery; ATTEND Orthopaedic Surgery
PROC: 0QP704Z Removal of Internal Fixation Device from Left Upper Femur, Open Approach (ICD-10-PCS; 2017-06-04)
PROC: 0SRB049 Replacement of Left Hip Joint with Ceramic on Polyethylene Synthetic Substitute, Cemented, Open Approach (ICD-10-PCS; principal; 2017-06-04 10:45)
DX: M87.852 Other osteonecrosis, left femur (principal); M16.52 Unilateral post-traumatic osteoarthritis, left hip; I10 Essential (primary) hypertension; E03.9 Hypothyroidism, unspecified; S72.092 Other fracture of head and neck of left femur; W19.XXXS Unspecified fall, sequela; Z95.810 Presence of automatic (implantable) cardiac defibrillator; I95.9 Hypotension, unspecified; R33.9 Retention of urine, unspecified